=== PATIENT | female | born 1995 | race African-American/Black ===

== ENCOUNTER 2020-12-24 09:29 | Emergency (ER) | payer OTHER ==
[2020-12-24 09:38] VITALS: BP 114/77; PULSE 89; TEMP 98.2; BMI 44.9
[2020-12-24] MEDS ORDERED: MAGNESIUM HYDROX 2400MG/30ML ORAL SUSPENSION 30 ML CUP PO ONE (10:59)
[2020-12-24] MEDS ORDERED: MAGNESIUM HYDROX 2400MG/30ML ORAL SUSPENSION 30 ML CUP ONE (11:04)
[2020-12-24] MEDS ORDERED: POLYETHYLENE GLYCOL 3350 255 GM BTL PO ONE (12:24)
== END 2020-12-24 13:15 | disposition home or self-care (01) ==
LOC: JER 09:29
DX: K59.00 Constipation, unspecified (principal)
CPT/HCPCS: 74019-TC-FY; 99283-25